=== PATIENT | female | born 1940 | race Caucasian/White ===

== ENCOUNTER → 2021-01-09 | Outpatient (CLI) | payer MEDICARE, OTHER | LOC: EXRD 09:34 | DX: M25.50 Pain in unspecified joint (principal); M75.52 Bursitis of left shoulder; R79.89 Other specified abnormal findings of blood chemistry; R70.0 Elevated erythrocyte sedimentation rate; M85.88 Other specified disorders of bone density and structure, other site; M89.49 Other hypertrophic osteoarthropathy, multiple sites; M21.242 Flexion deformity, left finger joints | CPT/HCPCS: 73030; 73130 ==